=== PATIENT | female | born 1995 | race Caucasian/White ===

== ENCOUNTER 2020-09-26 06:47 | Outpatient (NON) | payer OTHER, SELFPAY ==
[2020-09-26 22:14] LABS: SARS-CoV-2 RNA PCR Negative
== END 2020-09-26 06:48 ==
LOC: ANHCOVIDDT 06:49
PROVIDERS: PCP Family Medicine; Visit Provider Obstetrics & Gynecology
DX: Z20.828 Contact with and (suspected) exposure to other viral communicable diseases (principal); R05 Cough
CPT/HCPCS: 87635; C9803; U0003

== ENCOUNTER 2023-07-05 12:12 | Outpatient (CLI) | payer OTHER, SELFPAY ==
--- NOTE | ~2023-07-05 | XR_ITS ---
EXAM: XR cervical spine 4-5V DATE: 07/05/2023 12:56 HISTORY: M54.12 - Radiculopathy, cervical region LT ARM PAIN NUMBNESS . COMPARISON: None available. FINDINGS: Craniocervical association and atlantoaxial joint are aligned. No prevertebral soft tissue swelling. Trace 1 to 2 mm anterolisthesis at C2-3, the remaining bodies are aligned. Vertebral body heights are maintained. Very mild multilevel marginal osteophytosis. Mild multilevel facet sclerosis and hypertrophy. IMPRESSION: Grade 1 anterolisthesis at C2-3. Mild multilevel degenerative disc disease and facet arth ropathy. Reviewed, dictated and finalized at location K. IMPRESSION: Grade 1 anterolisthesis at C2-3. Mild multilevel degenerative disc disease and facet arthropathy.
--- NOTE | ~2023-07-05 | XR_ITS ---
Left Shoulder Technique: AP and axillary views were obtained. Clinical History: Pain Findings: No fracture or dislocation is seen. Osseous alignment is anatomic. The glenohumeral and acr omioclavicular joint spaces are preserved. Soft tissues are unremarkable. Impression: Unremarkable left shoulder radiographs. Reviewed, dictated and finalized at [facility]. Impression: Unremarkable left shoulder radiographs.
== END 2023-07-05 12:13 | disposition home or self-care (01) ==
PROVIDERS: PCP Family Medicine; Visit Provider Physician Assistant
DX: M54.12 Radiculopathy, cervical region (principal); M50.30 Other cervical disc degeneration, unspecified cervical region
CPT/HCPCS: 72050; 73030

== ENCOUNTER 2023-10-10 11:01 | Outpatient (CLI) | payer BC, SELFPAY ==
--- NOTE | ~2023-10-10 | XR_ITS ---
Left Hand Technique: PA, oblique, and lateral views were obtained. Clinical History: Pain Findings: No acute fracture or dislocation is seen. Osseous alignment is anatomic. Joint spaces are p reserved. Soft tissues are unremarkable. Impression: Unremarkable left hand. Reviewed, dictated and finalized at location M. MENTAL METAL FABRICATOR APPRENTICE Impression: Unremarkable left hand.
--- NOTE | ~2023-10-10 | XR_ITS ---
Right Hand Technique: PA, oblique, and lateral views were obtained. Clinical History: Pain Findings: No acute fracture or dislocation is seen. Osseous alignment is anatomic. Joint spaces are p reserved. Soft tissues are unremarkable. Impression: Unremarkable right hand. Reviewed, dictated and finalized at location M. T OFFICE REPRESENTATIVE Impression: Unremarkable right hand.
== END 2023-10-10 11:02 ==
PROVIDERS: PCP Physician Assistant Medical; Visit Provider Physician Assistant Medical
DX: M79.641 Pain in right hand (principal); M79.642 Pain in left hand
CPT/HCPCS: 73130

== ENCOUNTER 2024-02-01 11:40 | Outpatient (CLI) | payer OTHER, BC, SELFPAY ==
--- NOTE | ~2024-02-01 | XR_ITS ---
Clinical Indication: Cough PA and lateral views of the chest: Comparison: 05/14/2018 Findings: The lungs are clear, without evidence of focal consolidation or pleural effusion. Cardiome diastinal silhouette is within normal limits. Bones and soft tissues are unremarkable. Impression: Normal chest. Reviewed, dictated and finalized at [facility]. FIXER Impression: Normal chest.
== END 2024-02-01 11:41 ==
PROVIDERS: PCP Physician Assistant; Visit Provider Physician Assistant
DX: R05.9 Cough, unspecified (principal); R07.81 Pleurodynia; R06.02 Shortness of breath
CPT/HCPCS: 71046

== ENCOUNTER 2024-02-08 09:29 | Emergency (ER) | payer OTHER, BC, SELFPAY ==
--- NOTE | ~2024-02-08 | XR_ITS ---
EXAMINATION: XR chest 2V DATE: 02/08/2024 12:51 INDICATION: Right-sided chest pain with cough TECHNIQUE: PA and lateral views of the chest were obtained. COMPARISON: Chest radiograph dated 02/01/2024 FINDINGS: The lungs remain clear with no focal airspace opacities, pulmonary edema, pleural effusion or pneumot horax. The cardiomediastinal silhouette is normal. Visualized bones and soft tissues are unremarkable . IMPRESSION: 1. No acute cardiopulmonary disease. Reviewed, dictated and finalized at location L.
--- NOTE | 2024-02-08 09:34 | ED.CHESTPAIN ---
HPI - Chest Pain General Chief Complaint: Chest Pain Stated Complaint: CHEST PAIN X10 DAYS Time Seen by Provider: 02/08/24 09:32 Source: patient Mode of arrival: ambulatory Limitations: no limitations History of Present Illness HPI narrative: Rosie is a 28-year-old female patient presenting to the ER today with complaints of chest pain times 10 days. She reports over the last 2-3 weeks she has had a cough with congestion. Was recently treated for sinus infection with a Z-Riccardo and was given prednisone as well. Denies any fever or chills. States she is still coughing up green/yellow phlegm. Denies any associated shortness of breath. States the pain is to the right side of her chest and radiates below her right breast into her back and is having pain with movement of the right arm. Related Data Home Medications Medication Instructions Recorded Confirmed albuterol sulfate 90 mcg/actuation inhalation 02/08/24 aerosol inhaler alprazolam 0.25 mg tablet mg 02/08/24 02/08/24 benzonatate 100 mg capsule mg PO 02/08/24 cyclobenzaprine 5 mg tablet mg 02/08/24 omeprazole 20 mg capsule,delayed mg 02/08/24 release prednisone 10 mg tablet mg 02/08/24 trazodone 100 mg tablet mg 02/08/24 trazodone 150 mg tablet mg 02/08/24 venlafaxine 150 mg mg PO 02/08/24 capsule,extended release 24 hr Allergies Allergy/AdvReac Type Severity Reaction Status Date / Time No Known Allergies Allergy Verified 02/08/24 11:33 Review of Systems Review of Systems: Pertinent positives per HPI. Patient denies any fever, chills, rash, headache, visual changes, dizziness, cough, runny nose, sore throat, shortness of breath, palpitations, nausea, vomiting, diarrhea, constipation, abdominal pain, or any urinary issues. PMFSH Comments At the time of my signature, I reviewed and agree with the nursing past medical, surgical, social, and family history. There is no relevant family history pertinent to the patient complaint. Exam Narrative: General: Well-developed, well nourished, in no apparent distress Head: Normocephalic, atraumatic Eyes: Pupils equally round and reactive to light bilaterally, EOM intact, sclera and conjunctive clear, no discharge, lids normal Ears: TMs intact and clear, ear canals clear, no drainage, grossly hearing normal. Nose: Nares patent, no discharge, no inflammation, no sinus tenderness. Mouth: Oropharynx without lesions or masses, good dentition, MMM. Neck: Supple, trachea midline, no enlargement of anterior or posterior cervical nodes, no thyroid masses or goiter palpable. Cardio: Regular rate and rhythm, s1 and s2 normal, no murmur appreciated. Resp: Clear to auscultation bilaterally anteriorly and posteriorly, no rhonchi, rales, wheezing or rubs Extremities: No deformity, no edema, no cyanosis, capillary refill less than 2 seconds, peripheral pulses palpable and strong. Integumentary: Fisher, warm, and dry, intact without lesion, no rashes. Course Course Emergency Course: Portions of this record may have been created with voice recognition software. Vital Signs Vital signs: Vital Signs Temperature 37.0 C 02/08/24 09:36 Pulse Rate 90 02/08/24 09:36 Respiratory Rate 16 02/08/24 09:36 Blood Pressure 120/78 02/08/24 09:36 Pulse Oximetry 100 02/08/24 09:36 Oxygen Delivery Room Air 02/08/24 09:36 Temperature 37.0 C 02/08/24 09:36 Pulse Rate 90 02/08/24 09:36 Respiratory Rate 16 02/08/24 09:36 Blood Pressure 120/78 02/08/24 09:36 Pulse Oximetry 100 02/08/24 09:36 Oxygen Delivery Room Air 02/08/24 09:36 Vital signs reviewed MDM - Chest Pain MDM Narrative Medical decision making narrative: At the time of visit patient is resting comfortably on the exam table. Patient appears to be nontoxic. EKG: EKG shows sinus rhythm with heart rate of [address] elevation or depression. No T-wave inversions. Labs: CBC shows white blood
[2024-02-08 09:36] VITALS: BP 120/78; PULSE 90; RESP 16; TEMP 37; O2SAT 100
--- NOTE | 2024-02-08 09:40 | ECG_ITS ---
Measurements Intervals [place] Rate: 89 P: 44 IA: 132 QRS: -49 QRSD: 90 T: 38 QT: 346 QTc: 422 Interpretive Statements SINUS RHYTHM LEFT AXIS DEVIATION BORDERLINE R WAVE PROGRESSION, ANTERIOR LEADS INFERIOR INFARCT, AGE INDETERMINATE ABNORMAL ECG NO PREVIOUS ECG AVAILABLE FOR COMPARISON Electronically Signed On 02-08-2024 12:45:04 CDT by Noam Lopez D.O.
[2024-02-08 12:46] LABS: Alanine Aminotransferase 24 U/L (6-35); Albumin Level 4.1 g/dL (3.5-5.1); Alkaline Phosphatase 71 U/L (38-126); Anion Gap 5 mmol/L (8-16); Aspartate Amino Transferase 23 U/L (14-36); Bilirubin,Total 0.5 mg/dL (0.2-1.3); Blood Urea Nitrogen 23 mg/dL (7-17); Calcium 9.2 mg/dL (8.4-10.2); Carbon Dioxide 32 mmol/L (22-30); Chloride 100 mmol/L (98-107); Estimated CRCL calculation 78 ml/min; Estimated Glomerular Filt Rate 53; Glucose 94 mg/dL (65-110); Potassium 3.9 mmol/L (3.4-5.0); Sodium 137 mmol/L (137-145)
[2024-02-08 12:58] LABS: Troponin I < 0.012 ng/mL (0.000-0.034)
[2024-02-08 13:06] LABS: Basophils Absolute Auto 0.1 K/mm3 (0.0-0.1); Basophils Percent Auto 0.4 % (0.2-1.2); Eosinophils Absolute Auto 0.2 K/mm3 (0-0.3); Hematocrit 42.2 % (37.0-47.0); Immature Granulocyte Absolute 0.04 K/mm3 (0.00-0.031); Immature Granulocyte Percent A 0.3 % (0-0.5); Lymphocytes Percent Auto 36.9 % (18.3-44.2); Mean Corpuscular HGB Conc 30.8 g/dl (32-36); Mean Corpuscular Hemoglobin 27.1 pg (26-34); Mean Corpuscular Volume 88.1 fl (80-100); Mean Platelet Volume 9.3 fl (7.4-10.4); Monocytes Absolute Auto 0.9 K/mm3 (0.1-0.6); Monocytes Percent Auto 7.7 % (2.6-8.5); Neutrophils Absolute Auto 6.3 K/mm3 (1.3-6.7); Neutrophils Percent Auto 52.7 % (45.5-73.1); Platelet Count Result 281 k/mm3 (150-375); Red Blood Count 4.79 M/mm3 (4.2-5.4); Red Cell Distribution Width 15.4 % (11.5-14.5); White Blood Count 11.9 K/mm3 (4.5-10.0)
[2024-02-08 14:01] VITALS: BP 127/78; PULSE 80; RESP 17; TEMP 36.8; O2SAT 100
== END 2024-02-08 14:00 | disposition home or self-care (01) ==
PROVIDERS: Emergency Provider Nurse Practitioner Family; PCP Family Medicine
DX: R07.89 Other chest pain (principal); J01.90 Acute sinusitis, unspecified; B96.89 Other specified bacterial agents as the cause of diseases classified elsewhere; R94.31 Abnormal electrocardiogram [ECG] [EKG]
CPT/HCPCS: 36415; 71046; 80053; 84484; 85025; 93005; 99284

== ENCOUNTER 2024-09-23 12:43 | Outpatient (CLI) | payer OTHER, SELFPAY ==
--- NOTE | ~2024-09-23 | XR_ITS ---
EXAMINATION: XR abdomen/kub 1V DATE: 09/23/2024 13:07 INDICATION: Right flank pain. TECHNIQUE: A supine view of the abdomen on 2 radiographs was obtained. COMPARISON: None. FINDINGS: There are no dilated loops of bowel. There is a small volume of stool in the colon. There i s no visible urolithiasis. IMPRESSION: 1. Normal bowel gas pattern. Reviewed, dictated and finalized at location B.
== END 2024-09-23 12:44 | disposition home or self-care (01) ==
LOC: MICIMG 12:45
PROVIDERS: PCP Family Medicine; Visit Provider Student in an Organized Health Care Education/Training Program
DX: R10.9 Unspecified abdominal pain (principal)
CPT/HCPCS: 74018

== ENCOUNTER 2024-10-01 15:19 | Outpatient (RCR) | payer OTHER, SELFPAY | END 2024-12-23 09:40 | disposition home or self-care (01) | LOC: ANHDMC 15:19 | PROVIDERS: PCP Family Medicine; Visit Provider Family Medicine | DX: E11.9 Type 2 diabetes mellitus without complications (principal); Z71.89 Other specified counseling | CPT/HCPCS: G0108 ==

== ENCOUNTER 2024-10-15 12:36 | Outpatient (CLI) | payer OTHER, SELFPAY ==
--- NOTE | ~2024-10-15 | XR_ITS ---
EXAMINATION: XR lumbar spine 2-3V DATE: 10/15/2024 13:13 INDICATION: Low back pain. TECHNIQUE: 3 views of lumbar spine were obtained. COMPARISON: None. FINDINGS: There is 7 degrees levocurvature of thoracolumbar spine. There is mild chronic anterior wed ging of T12 vertebral body. Intervertebral disc heights are normal. There are endplate osteophytes at multiple levels. There is multilevel mild facet joint osteoarthritis. IMPRESSION: 1. Mild lumbar spondylosis. Reviewed, dictated and finalized at location A. CAR SALES MANAGER IMPRESSION: 1. Mild lumbar spondylosis.
--- NOTE | ~2024-10-15 | XR_ITS ---
Clinical Indication: Dyspnea PA and lateral views of the chest: Comparison: 02/08/2024 Findings: The lungs are clear, without evidence of focal consolidation or pleural effusion. Cardiome diastinal silhouette is within normal limits. Bones and soft tissues are unremarkable. Impression: Normal chest. Reviewed, dictated and finalized at location . NUE COLLECTOR Impression: Normal chest.
[2024-10-15 13:35] LABS: Influenza A QL RT-PCR Negative (Negative); Influenza B QL RT-PCR Negative (Negative); RSV RNA, RT-PCR Negative (Negative); SARS-CoV-2 RNA PCR Negative (Negative)
== END 2024-10-15 12:37 | disposition home or self-care (01) ==
LOC: ANHLAB 12:37
PROVIDERS: PCP Family Medicine; Visit Provider Student in an Organized Health Care Education/Training Program
DX: R06.00 Dyspnea, unspecified (principal); R09.89 Other specified symptoms and signs involving the circulatory and respiratory systems; M47.896 Other spondylosis, lumbar region
CPT/HCPCS: 71046; 72100; 87637

== ENCOUNTER 2024-10-29 15:35 | Outpatient (CLI) | payer OTHER, SELFPAY ==
[2024-10-29 16:03] LABS: Anion Gap 5 mmol/L (4-12); Blood Urea Nitrogen 13 mg/dL (7-17); Calcium 9.1 mg/dL (8.4-10.2); Carbon Dioxide 31 mmol/L (22-30); Chloride 102 mmol/L (98-107); Estimated Glomerular Filt Rate 58; Glucose 115 mg/dL (65-110); Potassium 3.9 mmol/L (3.4-5.0); Sodium 138 mmol/L (137-145)
== END 2024-10-29 15:36 | disposition home or self-care (01) ==
LOC: ANHLAB 15:36
PROVIDERS: PCP Family Medicine; Visit Provider Student in an Organized Health Care Education/Training Program
DX: N28.9 Disorder of kidney and ureter, unspecified (principal)
CPT/HCPCS: 36415; 80048

== ENCOUNTER 2024-11-01 13:42 | Outpatient (CLI) | payer OTHER, SELFPAY ==
--- NOTE | ~2024-11-01 | US_ITS ---
Renal-Bladder ultrasound Clinical History: Disorder of kidney and ureter, unspecified Technique: Real-time sonographic imaging of the kidneys and urinary bladder was performed. Findings: The right kidney measures 10.7 cm in length and the left kidney measures 10.5 cm. There is no hydronephrosis or renal calculus identified. Renal cortical echogenicity is within normal limits. No renal mass lesion is identified. The urinary bladder is moderately distended at the time of this exam. No intraluminal echoes are iden tified. No abnormal wall thickening is seen. Impression: Unremarkable ultrasound of the kidneys and urinary bladder. Reviewed, dictated and finalized at location M. ING APPAREL PRESSER Impression: Unremarkable ultrasound of the kidneys and urinary bladder.
== END 2024-11-01 13:43 | disposition home or self-care (01) ==
LOC: MICIMG 13:43
PROVIDERS: PCP Family Medicine; Visit Provider Student in an Organized Health Care Education/Training Program
DX: N28.9 Disorder of kidney and ureter, unspecified (principal)
CPT/HCPCS: 76775

== ENCOUNTER 2024-12-13 16:00 | Outpatient (CLI) | payer OTHER, SELFPAY ==
--- NOTE | ~2024-12-13 | MR_ITS ---
EXAMINATION: MR lumbar spine wo con DATE: 12/13/2024 16:39 INDICATION: Lumbar radiculopathy TECHNIQUE: Magnetic resonance imaging (MRI) of the lumbar spine was performed without intravenous con trast. Sequences included sagittal T2-weighted FSE, sagittal T2-weighted FS FSE, sagittal T1-weighted FSE, and axial T2-weighted FSE. COMPARISON: Lumbar spine radiographs dated 10/15/2024 FINDINGS: 8 degree thoracolumbar levocurvature. Sagittal alignment is normal. Vertebral body heights are normal . Normal marrow signal. Mild disc desiccation and mild disc height loss and annular fissures at L4-L 5 and L5-S1. The more cephalad discs are normal. The conus medullaris terminates at L2-L3. There is n ormal signal in the caudal spinal cord. 1.6 cm T2 hyperintense left renal cyst. Paravertebral soft ti ssues are unremarkable. The following disc levels are specifically discussed: T12-L1: The disc does not extend beyond the endplate margin. There is moderate bilateral facet joint osteoarthritis. There is no neural foraminal stenosis. There is no central canal stenosis. L1-L2: Disc is minimally bulging. There is mild right and mild to moderate left facet joint osteoarth ritis. There is no neural foraminal stenosis. There is no central canal stenosis. L2-L3: Disc is minimally bulging. There is old right and minimal left facet joint osteoarthritis. The re is no neural foraminal stenosis. There is no central canal stenosis. L3-L4: The disc does not extend beyond the endplate margin. There is mild bilateral facet joint osteo arthritis. There is no neural foraminal stenosis. 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 L4-L5: Disc is bulging with superimposed central annular fissure and disc protrusion. There is mild t o moderate bilateral facet joint osteoarthritis. There is mild to moderate bilateral neural foraminal stenosis. There is moderate to severe central canal stenosis due to combination of the disc bulge an d protrusion as well as a congenitally small central canal. L5-S1: Disc is bulging with superimposed annular fissure and right paracentral disc protrusion. There is mild bilateral facet joint osteoarthritis. There is moderate left and mild to moderate right neur al foraminal stenosis. There is moderate central canal stenosis with narrowing of the lateral recesse s, right greater than left. There is mass effect exerted upon the traversing left S1 nerve root and c ompression by the disc protrusion of the traversing right S1 nerve root. IMPRESSION: 1. Mild lower lumbar spondylosis most notable for disc protrusions at L4-L5 and L5-S1 the latter exer ting mass effect upon the traversing right S1 nerve root. Correlate clinically for muscle weakness of plantar flexion, sensory change of the lateral foot and small toe, and depressed ankle reflex. Reviewed, dictated and finalized at location B. ENT SUPPLIER IMPRESSION: 1. Mild lower lumbar spondylosis most notable for disc protrusions at L4-L5 and L5-S1 the latter exerting mass effect upon the traversing right S1 nerve root. Correlate clinically for muscle weakness of plantar flexion, sensory change of the lateral foot and small toe, and depressed ankle reflex.
== END 2024-12-13 16:01 | disposition home or self-care (01) ==
PROVIDERS: PCP Family Medicine; Visit Provider Family Medicine
DX: M47.26 Other spondylosis with radiculopathy, lumbar region (principal); M51.26 Other intervertebral disc displacement, lumbar region
CPT/HCPCS: 72148